=== PATIENT | female | born 1955 ===

== ENCOUNTER 2021-10-07 23:01 | Emergency (ER) | payer BC ==
[2021-10-07 23:45] LABS: HEMOGLOBIN 11.1 gm/dl (12.3-15.3); RED BLOOD COUNT 3.54 M/UL (4.00-5.10); WHITE BLOOD COUNT 11.4 K/UL (4.5-11.0)
[2021-10-08 00:06] LABS: BUN/CREATININE RATIO 13 (0-10)
[2021-10-08] MEDS ORDERED: AUGMENTIN 875-1 EACH PO (02:21)
[2021-10-08] MEDS ORDERED: DOXYCYCLINE HY100 MG PO (02:21)
[2021-10-08] MEDS ORDERED: BENZONATATE200 MG PO (02:21)
== END 2021-10-08 03:00 | disposition home or self-care (01) ==
LOC: ER1 23:01
PROVIDERS: Physician Assistant
DX: J18.9 Pneumonia, unspecified organism (principal); I12.9 Hypertensive chronic kidney disease with stage 1 through stage 4 chronic kidney disease, or unspecified chronic kidney disease; N18.9 Chronic kidney disease, unspecified; Z20.822 Contact with and (suspected) exposure to COVID-19; E11.22 Type 2 diabetes mellitus with diabetic chronic kidney disease; Z79.4 Long term (current) use of insulin; Z87.891 Personal history of nicotine dependence; Z94.0 Kidney transplant status
CPT/HCPCS: 0240U; 71045; 80053; 82550; 82553; 83874; 83880; 84484; 85025; 93005; 94664; 99284

== ENCOUNTER → 2022-05-14 | Outpatient (CLI) | payer BC ==
[~2022-05-14] MED LIST: AUGMENTIN 875-1 EACH PO; BENZONATATE200 MG PO; DOXYCYCLINE HY100 MG PO
== END ==
LOC: EXRD 10:56
DX: Z94.0 Kidney transplant status (principal)
CPT/HCPCS: 76775